=== PATIENT | female | born 1955 | race Caucasian/White ===

== ENCOUNTER 2020-03-03 20:01 | Emergency (ER) | payer MEDICAID ==
--- NOTE | 2020-03-03 20:50 | EDM.PDOC ---
ED HPI GENERAL MEDICAL PROBLEM - General Stated Complaint: S/P FALL CHEST AND BACK PAIN Time Seen by Provider: 03/03/20 20:35 Source of Information: Reports: Patient History Limitations: Reports: No Limitations - History of Present Illness INITIAL COMMENTS - FREE TEXT/NARRATIVE: Patient presents with pain in back and ribs. She tripped on a sidewalk protrusion 9 days ago in [place]. At that time her left knee and elbow were most painful. At ER there her knee was xrayed and found okay. Advised to ice it. The last couple days her middle back and lower ribs around to lateral chest have been increasingly painful. She has been using Ibuprofen 800 mg and Advil for this. She denies any dyspnea. - Related Data Allergies Allergy/AdvReac Type Severity Reaction Status Date / Time codeine AdvReac Other Verified 03/03/20 20:45 oxycodone AdvReac Other Verified 03/03/20 20:45 pseudoephedrine HCl AdvReac Other Verified 03/03/20 20:45 [From Sudafed] triprolidine HCl AdvReac Other Verified 03/03/20 20:45 [From Actifed] Home Meds: Home Meds Aspirin [Ecotrin EC] 81 mg PO BEDTIME 01/20/14 [History] Furosemide 40 mg PO QAM 01/20/14 [History] Gabapentin [Neurontin] 300 mg PO TID PRN 01/20/14 [History] Losartan [Cozaar] 50 mg PO QAM 01/20/14 [History] glyBURIDE [Glyburide] 2 tab PO BID 01/20/14 [History] metFORMIN [Glucophage] 1,000 mg PO BID 01/20/14 [History] SitaGLIPtin [Januvia] 100 mg PO DAILY 03/19/15 [History] Social & Family History - Living Situation & Occupation Living situation: Reports: Occupation: Employed ED ROS GENERAL - Review of Systems Review Of Systems: See Below Constitutional: Denies: Fever, Chills, Malaise, Weakness HEENT: Reports: No Symptoms Respiratory: Denies: Shortness of Breath, Cough Cardiovascular: Denies: Lightheadedness, Syncope GI/Abdominal: Denies: Abdominal Pain, Vomiting Musculoskeletal: Reports: Back Pain. Denies: Neck Pain, Shoulder Pain, Arm Pain, Hand Pain, Leg Pain (her knee has improved significantly) Skin: Denies: Cyanosis, Jaundice, Mottled, Pallor, Diaphoresis Neurological: Denies: Confusion, Dizziness, Headache, Seizure, Syncope, Trouble Speaking, Difficulty Walking Psychiatric: Denies: Agitation, Anxiety, Confusion ED EXAM, GENERAL - Physical Exam Exam: See Below Exam Limited By: No Limitations General Appearance: Alert, WD/WN, No Apparent Distress Eye Exam: Bilateral Eye: EOMI, Normal Inspection, PERRL Ears: Normal External Exam, Hearing Grossly Normal Nose: Normal Inspection, No Blood Throat/Mouth: Normal Inspection, Normal Lips, Normal Voice, No Airway Compromise Head: Atraumatic, Normocephalic Neck: Normal Inspection, Full Range of Motion Respiratory/Chest: No Respiratory Distress, Lungs Clear, Normal Breath Sounds, No Accessory Muscle Use Cardiovascular: Regular Rate, Rhythm, No Murmur Back Exam: Muscle Spasm, Paraspinal Tenderness (all along the thoracic spine bilaterally in the soft tissues), Vertebral Tenderness (less acute than paraspinal but tender along thoracic spine) Extremities: Normal Inspection, Normal Range of Motion, Non-Tender Neurological: Alert, Oriented, Normal Cognition, No Motor/Sensory Deficits Psychiatric: Normal Affect, Anxious Skin Exam: Warm, Dry, Intact, Normal Color, No Rash Course - Re-Assessments/Exams Free Text/Narrative Re-Assessment/Exam: 03/03/20 22:18 Discussed findings and recommendations with patient. She will drive home so will not take the Flexeril until home before going to bed. Patient stable at discharge. Departure - Departure Time of Disposition: 22:13 Disposition: Home, Self-Care 01 Condition: Good Clinical Impression: Spasm of thoracic back muscle - Discharge Information Instructions: Muscle Cramps and Spasms, [id number] Referrals: Bonnie Pollard MD [Primary Care Provider] - Additional Instructions: Drink 8 cups of water daily. Take the muscle relaxant as directed. Avoid use within [address] Continue the Ibuprofen as needed up to 2400 mg per day total. Follow up with your PCP if not improving in a few days or [facility] if worsening.
[2020-03-03 21:31] VITALS: BP 163/87; PULSE 91
[2020-03-03] MEDS: Cyclobenzaprine 10 MG Tab PO ONE (22:20)
--- NOTE | 2020-03-04 08:24 | CR ---
0122-0427 RAD/RAD Ribs Left W PA Chest EXAM: RAD Ribs Left W PA Chest INDICATION: FALL, PAIN MID BACK TO LATERAL RIBS COMPARISON: None. DISCUSSION: Cardiomediastinal silhouette is normal in size and contour. No infiltrate, effusion, pneumothorax, or edema. No radiographic evidence of acute rib fracture. IMPRESSION: No acute cardiopulmonary abnormality. Chay Garcia DO 03/04/20 0823 Thank you for allowing us to participate in the care of your patient.
== END 2020-03-03 22:20 | disposition home or self-care (01) ==
LOC: KA.ED 20:01
DX: M62.830 Muscle spasm of back (principal); Z88.5 Allergy status to narcotic agent; Z88.8 Allergy status to other drugs, medicaments and biological substances; Z79.82 Long term (current) use of aspirin; Z79.84 Long term (current) use of oral hypoglycemic drugs; Z79.899 Other long term (current) drug therapy
CPT/HCPCS: 71101-LT; 99283; 99283-25

== ENCOUNTER 2021-03-15 12:57 | Emergency (ER) | payer MEDICAID ==
[2021-03-15] MEDS ORDERED: Sodium Chloride 0.9% 10 ML Syringe FLUSH PRN (13:13)
[2021-03-15 13:58] LABS: ANION GAP 20.7 mmol/L (5-15)
[2021-03-15 14:12] VITALS: BP 113/70; PULSE 88
[2021-03-15] MEDS ORDERED: Cefdinir 300 MG Cap PO ONE (14:14)
[2021-03-15] MEDS ORDERED: LORazepam 0.5 MG Tab PO ONE (14:14)
[2021-03-15] MEDS ORDERED: cefTRIAXone 1 GM Vial IVPUSH ONE (14:14)
== END 2021-03-15 14:40 | disposition home or self-care (01) ==
LOC: KA.ED 12:57
DX: J18.9 Pneumonia, unspecified organism (principal); E11.9 Type 2 diabetes mellitus without complications; I10 Essential (primary) hypertension; E66.9 Obesity, unspecified; Z68.41 Body mass index [BMI] 40.0-44.9, adult; Z88.5 Allergy status to narcotic agent; Z88.8 Allergy status to other drugs, medicaments and biological substances; Z79.82 Long term (current) use of aspirin; Z79.84 Long term (current) use of oral hypoglycemic drugs; Z79.899 Other long term (current) drug therapy
CPT/HCPCS: 36415; 71045; 80048; 82947; 83605; 85025; 96374; 99284; 99285-25; A9270-GY; J0696

== ENCOUNTER 2021-05-11 16:04 | Emergency (ER) | payer MEDICARE, MEDICAID ==
[2021-05-11 16:45] LABS: ANION GAP 22.8 mmol/L (5-15)
[2021-05-11] MEDS: Sodium Chloride 0.9% 1,000 ML IV ONE (17:10)
[2021-05-11] MEDS: 50% Dextrose in Water 50 ML Syringe IVPUSH ONE (17:16)
[2021-05-11] MEDS: Dextrose 5%-0.9% NaCl 1,000 ML IV SCH (17:48)
[2021-05-11] MEDS: Sodium Polystyrene Sulfonate 15 GM/60 ML Susp 60 ML Bot PO ONE (17:49)
[2021-05-11 17:50] VITALS: BP 200/104; PULSE 91
== END 2021-05-11 17:49 ==
LOC: KA.ED 16:04
DX: E11.65 Type 2 diabetes mellitus with hyperglycemia (principal); N17.9 Acute kidney failure, unspecified; E66.9 Obesity, unspecified; Z68.41 Body mass index [BMI] 40.0-44.9, adult; Z79.84 Long term (current) use of oral hypoglycemic drugs; Z88.5 Allergy status to narcotic agent; Z88.8 Allergy status to other drugs, medicaments and biological substances; Z79.82 Long term (current) use of aspirin; Z79.899 Other long term (current) drug therapy; Z20.822 Contact with and (suspected) exposure to COVID-19
CPT/HCPCS: 36415; 80053; 81001; 82947; 85025; 96374; 99284; 99285-25; A9270-GY; J7030; J7042; U0002